=== PATIENT | female | born 1960 | race Caucasian/White ===

== ENCOUNTER 2017-11-10 01:09 | Inpatient (IN) | payer SELFPAY ==
[2017-11-10 03:06] LABS: #Basophils 0.1 thou/uL (0.0-0.2); #Eosinphils 0.1 thou/uL (0.0-0.7); #Lymphocytes 2.4 thou/uL (1.20-3.40); #Monocytes 0.5 thou/uL (0.11-0.59); #Neutrophils 5.5 thou/uL (1.40-6.50); %Eosinophils 1.7 % (0.0-10.0); %Monocytes 5.5 % (0.0-10.0); %Neutrophils 63.8 % (42.0-75.0); Hemoglobin 13.5 g/dL (12.0-16.0); Mean Corpuscular HGB CONC 33.8 g/dL (32.0-36.0); Mean Corpuscular Hemoglobin 33.9 pg (27.0-31.0); Mean Platelet Volume 6.4 fL (7.4-10.4); Platelet Count 314 thou/uL (130-400); RBC Distribution Width 12.6 % (11.5-14.5); White Blood Cell (WBC) Count 8.7 thou/uL (4.8-10.8)
[2017-11-10 03:30] LABS: Acetaminophen Less than 6.0 mcg/mL (10.0-30.0); Alcohol 175 mg/dL (Less than 10); CK (CPK) 83 U/L (29-168); Salicylate Less than 8.0 mg/dL (15.0-30.0)
[2017-11-10 03:31] LABS: ALT (SGPT) 26 U/L (8-55); AST (SGOT) 21 U/L (5-34); Albumin 4.6 g/dL (3.5-5.0); Alkaline Phosphatase 83 U/L (40-150); Anion Gap 18 mmol/L (10-20); BUN (Urea Nitrogen) 12 mg/dL (9.8-20.1); Bilirubin, Total 0.2 mg/dL (0.2-1.2); Calc. Creatinine Clearance 0 mL/min (70-130); Calcium 9.7 mg/dL (7.8-10.44); Carbon Dioxide 24 mmol/L (22-29); Chloride 107 mmol/L (98-107); Estimated GFR-MDRD Greater than 90; Globulin 3.4 g/dL (2.4-3.5); Glucose 154 mg/dL (70-105); Potassium 4.6 mmol/L (3.5-5.1); Sodium 144 mmol/L (136-145)
[2017-11-10 04:01] LABS: Bilirubin Negative (Negative); Blood, Urine Negative (Negative); Clarity CLOUDY (Clear); Glucose, Urine (Dipstick) Negative (Negative); Leukocyte Negative (Negative); Nitrite Negative (Negative); Protein, Urine (Dipstick) Negative (Neg-Trace); Specific Gravity, Urine 1.025 (1.002-1.036); Urobilinogen 0.2 mg/dL (0.2-1.0); pH, Urine 5.5 (5.0-9.0)
[2017-11-10] MEDS ORDERED: Calcium Gluc 4.6 MEQ/10 ML (100 MG/ML) ONE (04:05)
[2017-11-10 04:06] LABS: CKMB 0.8 ng/mL (0-6.6); Troponin I Less than 0.010 ng/mL (< 0.028)
[2017-11-10 04:10] LABS: Amphetamine Not Detected (NotDetected); Barbiturates Screen Not Detected (NotDetected); Benzodiazepine Screen Not Detected (NotDetected); Cocaine Metabolite Screen Not Detected (NotDetected); Medtox Control Line Valid? VALID (VALID); Medtox Reader # READER 4; Methadone Not Detected (NotDetected); Methamphetamine Not Detected (NotDetected); Opiate Screen Not Detected (NotDetected); Oxycodone Screen Not Detected (NotDetected); Phencyclidine (PCP) Not Detected (NotDetected); THC/Cannabinoid Screen Not Detected (NotDetected); Tricyclic Screen Not Detected (NotDetected)
[2017-11-10] MEDS ORDERED: Acetaminophen 325 MG TAB PO PRN (04:31)
[2017-11-10] MEDS ORDERED: Ondansetron ODT 4 MG TAB PO PRN (04:31)
[2017-11-10] MEDS ORDERED: Dextrose 5% in Water 1,000 ML IV PRN (04:39)
[2017-11-10] MEDS ORDERED: HumaLOG 300 UNITS/3 ML VIAL SC PRN (04:39)
[2017-11-10] MEDS ORDERED: Dextrose 50% Abboject 50 ML SYRINGE SLOW IVP PRN (04:39)
[2017-11-10] MEDS: Sodium Chloride 0.9% 1,000 ML IV SCH ×5 (04:45→20:04)
--- NOTE | 2017-11-10 05:19 | HP ---
CHIEF COMPLAINT: Ingestion of medications. HISTORY OF PRESENT ILLNESS: The patient is a 57-year-old female who was admitted secondary to taking an overdose of her amlodipine, Lipitor, and paroxetine. Patient apparently ingested four of each pi lls. She stated that she did not really know why she took it, but she was angry apparently at somebo dy. She did not elaborate for me. Patient since then appears to be doing okay. She is asymptomatic at the current time. She was taken to the OR and Poison Control was contacted and a recommendation was to monitor her due to long-acting nature of her amlodipine and its effect on blood pressure. PAST MEDICAL HISTORY: Patient is significant for hypertension, hyperlipidemia, and depression. PAST SURGICAL HISTORY: Patient had prior hysterectomy as well as tonsillectomy. SOCIAL HISTORY: Patient does smoke about a pack every 3 days and states that she does at times binge drink to the point of inebriation. FAMILY HISTORY: Reviewed and noncontributory. ALLERGIES: Patient is allergic to SULFA. LABORATORY AND X-RAYS DATA: CBC: White count was 8.7, H&H 13 and 40 with a platelet of 314. Sodium is 144, potassium 4.6, chloride 107, bicarbonate 24, BUN 12, creatinine 0.6 with glucose of 154. Pa tient's TSH was 1.1. Patient's UA was normal and her tox screen was negative except for a very small amount of Tylenol. PHYSICAL EXAMINATION: VITAL SIGNS: Blood pressure was 111/63, pulse 94, respirations 20. Patient satting 97% on 2 liters. T-max is 99.0. GENERAL: Patient is awake, alert, and oriented x3, no acute distress. HEENT: Pupils are round and reactive to light and accommodation. Extraocular muscles are intact. TMs are clear. No erythema in throat. NECK: No JVD, no lymphadenopathy. CARDIOVASCULAR: Regular and rhythm. LUNGS: Clear to auscultation bilaterally and positive bowel sounds. ABDOMEN: Soft, nontender, nondistended. EXTREMITIES: No clubbing, cyanosis, or edema. NEUROLOGIC: Cranial nerves II-XII are grossly intact. PSYCHIATRIC: Patient is cooperative and answering questions appropriately. ASSESSMENT AND PLAN: 1. Multi drug ingestion overdose with amlodipine, Lipitor, and paroxetine. Continue supportive care . Continue to monitor blood pressure as well as a blood sugar. 2. Hypertension, obviously continue to hold amlodipine. 3. Hyperlipidemia. Hold Lipitor. 4. Code status: Patient is FULL CODE.
[2017-11-10] MEDS ORDERED: Enoxaparin Sodium 30 MG/0.3 ML SYRINGE ONE (09:54)
[2017-11-10] MEDS ORDERED: Diabetic Tussin 200 MG/10 ML UDCUP PO PRN (10:29)
[2017-11-10] MEDS ORDERED: Sodium Chloride 0.65% Nasal 44 ML BOT EA NARE PRN (10:29)
--- NOTE | 2017-11-10 15:11 | ADD-ER ---
EMERGENCY ROOM ADDENDUM Please refer to the patient's electronic medical record for further details of her visit. In summary, the patient presents with a flat affect having stated that she intentionally overdosed on multiple of her medications, most concerningly amlodipine. She states "I don't know, maybe 4 or 5" tablets of her 10 mg amlodipine. She states it was approximately 3-4 hours prior to arrival. On exam, she demonstrates a flat affect, but is hemodynamically stable on arrival. She is in no resp iratory distress, is not septic or toxic appearing, and has no peritoneal findings on abdominal exam. She states that she vomited shortly after taking medicines. Poison Center was contacted and advise d at least 8 hours of observation. Serial blood glucose measurements were obtained at their recommen dation and with concerning trend in both her glucose and her blood pressure, she was admitted to the IMCU. She was given IV fluids and calcium and maintained her blood pressure for the remainder of her ER stay. She did not become truly hypotensive at any time. She reportedly admitted to EMS, but thi s was unintentional suicide attempt, though she was evasive when I asked her this directly. She will obviously require mental health screening when she is medically cleared. I discussed the case with Dr. Chung of the [facility] service. She is in guarded condition at the time of admiss ion.
[2017-11-10] MEDS ORDERED: Acetaminophen 325 MG TAB ONE (19:10)
[2017-11-10 20:35] LABS: Troponin I 0.028 ng/mL (< 0.028)
[2017-11-10 20:45] VITALS: BMI 29.9
[2017-11-10] MEDS: Enoxaparin Sodium 30 MG/0.3 ML SYRINGE SC SCH (21:01)
[2017-11-10 23:36] LABS: Troponin I 0.022 ng/mL (< 0.028)
[2017-11-11] MEDS: Sodium Chloride 0.9% 1,000 ML IV SCH (05:09)
[2017-11-11] MEDS: Enoxaparin Sodium 30 MG/0.3 ML SYRINGE SC SCH (08:19)
[2017-11-11] MEDS ORDERED: Enoxaparin Sodium 40 MG/0.4 ML SYRINGE SC SCH (09:00)
--- NOTE | 2017-11-11 14:01 | CON ---
DATE OF CONSULTATION: 11/11/2017 HISTORY: She is a 57-year-old female from [place] who apparently got mad and took 4 tablets of amlodipine, Lipitor and paroxetine. She then was nauseated. She is in the ICU because no beds at the [facility]. She denies any pain, shortne ss of breath, cough, wheezing, orthopnea, paroxysmal nocturnal dyspnea. PAST MEDICAL HISTORY: 1. Hypertension. 2. Hyperlipidemia. 3. Depression. PAST SURGICAL HISTORY: Hysterectomy, tonsillectomy. TOBACCO: She smokes half a pack every 3 days. ALCOHOL: Excessive, 8 beers every other day. SOCIAL/FAMILY HISTORY: [employer] Din[employer]. ALLERGIES: SULFA. FAMILY HISTORY: Otherwise unremarkable. REVIEW OF SYSTEMS: Otherwise 10 point negative. Please note there are no other members to get history for the patient, history obtained directly from the patient. She had a previous stress test done which apparently was negative. PHYSICAL EXAMINATION: GENERAL: Awake, alert, responsive, in no distress. VITAL SIGNS: Blood pressure 130/64, pulse 85, sats are 96%, respiratory rate 20. CHEST: Chest revealed no wheezing or crackles. CARDIAC: Normal S1, S2. No gallops. ABDOMEN: Soft, no masses. LABORATORY: Influenza was negative. Other labs noted. White count 8,000, H&H 13 and 40. Chemistry profile is normal. Alcohol level is 50. Toxicology screen shows in the remote past, but none recently. IMPRESSION: 1. Intentional overdose with no residual side effects. 2. Hypertension. 3. High cholesterol. 4. Depression. PLAN: She can be transferred out of the ICU to a regular medical floor. She needs counseling. I crowell ve nothing additional to offer at this time. PT and supportive care. Continue slow hydration. Please note this is a consultation note in the ICU of which 50% of my time is spent directly with elise brown.
[2017-11-11 16:16] VITALS: TEMP 97.7
== END 2017-11-11 18:04 | disposition home or self-care (01) | DRG 918 ==
LOC: ERS 01:09 → ERHOLD 03:58 → CCU 19:26
PROVIDERS: ADMIT Hospitalist; ATTEND Hospitalist
DX: T46.1X2A Poisoning by calcium-channel blockers, intentional self-harm, initial encounter (principal); E78.00 Pure hypercholesterolemia, unspecified; E78.5 Hyperlipidemia, unspecified; F17.210 Nicotine dependence, cigarettes, uncomplicated; I10 Essential (primary) hypertension; F32.9 Major depressive disorder, single episode, unspecified; T46.6X2A Poisoning by antihyperlipidemic and antiarteriosclerotic drugs, intentional self-harm, initial encounter; T43.222A Poisoning by selective serotonin reuptake inhibitors, intentional self-harm, initial encounter; T14.91XA Suicide attempt, initial encounter
CPT/HCPCS: 36415; 36416; 80053; 80306; 80307; 81003; 82550; 82553; 83605; 84443; 84484; 85025; 90471; 90732; 93005; 96361; 96365; 96366; 96372; G0009; J1650

== ENCOUNTER 2019-05-13 10:49 | Observation (INO) | payer SELFPAY ==
[2019-05-13 11:12] LABS: #Basophils 0.1 thou/uL (0.0-0.2); #Eosinphils 0.2 thou/uL (0.0-0.7); #Lymphocytes 3.1 thou/uL (1.20-3.40); #Monocytes 0.5 thou/uL (0.11-0.59); #Neutrophils 4.3 thou/uL (1.40-6.50); %Basophils 1.2 % (0.0-1.0); %Eosinophils 2.5 % (0.0-10.0); %Monocytes 5.5 % (0.0-10.0); %Neutrophils 52.9 % (42.0-75.0); Hemoglobin 13.5 g/dL (12.0-16.0); Mean Corpuscular HGB CONC 33.9 g/dL (32.0-36.0); Mean Corpuscular Hemoglobin 33.7 pg (27.0-31.0); Mean Corpuscular Volume 99.6 fL (78.0-98.0); Platelet Count 264 thou/uL (130-400); RBC Distribution Width 12.2 % (11.5-14.5); Red Blood Cell (RBC) Count 4.02 mill/uL (4.20-5.40); White Blood Cell (WBC) Count 8.2 thou/uL (4.8-10.8)
[2019-05-13 11:36] LABS: ALT (SGPT) 23 U/L (8-55); AST (SGOT) 18 U/L (5-34); Albumin 4.2 g/dL (3.5-5.0); Alkaline Phosphatase 72 U/L (40-150); Anion Gap 14 mmol/L (10-20); BUN (Urea Nitrogen) 14 mg/dL (9.8-20.1); Bilirubin, Total 0.4 mg/dL (0.2-1.2); Calc. Creatinine Clearance 0 mL/min (70-130); Calcium 9.7 mg/dL (7.8-10.44); Carbon Dioxide 22 mmol/L (22-29); Chloride 108 mmol/L (98-107); Estimated GFR-MDRD 85; Globulin 3.2 g/dL (2.4-3.5); Glucose 93 mg/dL (70-105); Protein, Total 7.4 g/dL (6.0-8.3); Sodium 140 mmol/L (136-145)
[2019-05-13] MEDS ORDERED: Aspirin Chewable 81 MG TAB ONE (11:43)
[2019-05-13] MEDS ORDERED: Nitroglycerin 2% Ointment 1 INCH/1 GM Packet ONE (11:43)
--- NOTE | 2019-05-13 12:04 | RAD ---
XR Chest 1 View Portable HISTORY: Chest pain COMPARISON: 08/14/2017 FINDINGS: The heart size is normal. The lungs are well expanded without focal areas of consolidation, pneumothorax or pleural effusions. IMPRESSION: No radiographic evidence of acute cardiopulmonary process.
[2019-05-13] MEDS ORDERED: Ondansetron PF 4 MG/2 ML Vial IVP PRN ×2 (14:10→15:02)
[2019-05-13] MEDS ORDERED: Acetaminophen 325 MG TAB PO PRN ×2 (14:10→15:02)
[2019-05-13] MEDS ORDERED: Ondansetron ODT 4 MG TAB SL PRN (14:10)
[2019-05-13 14:17] VITALS: BMI 31.8
[2019-05-13] MEDS ORDERED: hydrALAZINE 20 MG/ML VIAL SLOW IVP PRN (15:02)
[2019-05-13] MEDS ORDERED: Ondansetron ODT 4 MG TAB PO PRN (15:02)
[2019-05-13] MEDS ORDERED: cloNIDine 0.1 MG TAB PO PRN (15:02)
[2019-05-13] MEDS ORDERED: Nitroglycerin 0.4 MG TAB (25 Tab Bottle) PO PRN (15:02)
[2019-05-13 15:06] LABS: Troponin I Less than 0.010 ng/mL (< 0.028)
--- NOTE | 2019-05-13 15:52 | HP ---
PRIMARY CARE PHYSICIAN: Taylor Bautista DO CHIEF COMPLAINT: Chest pain. HISTORY OF PRESENT ILLNESS: Ms. Bean is a pleasant 58-year-old female, who has a history of hypertension and hypercholesterolemia. However, she is currently not on any medications. She says that she had gotten up this morning around 7:00 a.m. and woke up with a headache and also with some pain in the center of her chest. 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 She says that she was basically just watching him and was not doing anything strenuous, but then started having some sharp pain in the center of her chest and more to the left side. She rated it about 8/10 and says that it was sharp in character. She says it went up into her neck and made her feel kind of funny. She says that it lasted for about an hour. During this time, she also felt nauseated but did not have any vomiting. No diaphoresis and no shortness of breath. She also noted a pressure behind her left eye, but she is not really sure how this relates. She says she had an episode similar to this a couple of years ago. At that time, she had a cardiac workup and it was negative, but she says this time the pain was much more severe and for this reason, she came to the ER for evaluation. In the ER, they did an EKG, which was negative. Also, her initial troponin was less than 0.010. However, due to her history of hypertension and elevated cholesterol, she is being placed in observation. Currently, she says her pain is about 5/10 and again no shortness of breath. She also denies any PND. No orthopnea. No lower extremity edema. REVIEW OF SYSTEMS: CONSTITUTIONAL: There has been no fevers or chills. No night sweats. No weight loss. HEENT: She admits to mild headache and some pressure behind her left thigh. She denies any sore throat. No rhinorrhea. NECK: No neck pain. No adenopathy. PULMONARY: She does admit to occasional cough, but no hemoptysis. No wheezing. CARDIOVASCULAR: As the history of present illness. GASTROINTESTINAL: She has had some nausea, but no vomiting. No hematemesis. No melena. No abdominal pain. GENITOURINARY: No urinary frequency or hematuria. No hesitancy. MUSCULOSKELETAL: No muscle pains, weakness, or joint pains. NEUROLOGIC: No focal weakness or numbness. No seizures. SKIN AND INTEGUMENT: No skin changes. No rash. PSYCHIATRIC: She denies any anxiety or any depression, but does say she has been under some more degree of stress due to school starting and she is taking care of her grand children. PAST MEDICAL HISTORY: Significant for hypertension and elevated cholesterol. PAST SURGICAL HISTORY: She has had a hysterectomy and tonsillectomy. ALLERGIES: TO SULFA, WHICH SHE SAYS MAKES HER SKIN CRAWL. FAMILY HISTORY: Significant for diabetes mellitus and heart disease in her father and sister had a bypass surgery. SOCIAL HISTORY: She is , has 4 children. She smokes about a half a pack a day. She denies any alcohol use. No drug use. She would like to be a full code. CURRENT MEDICATIONS: None. PHYSICAL EXAMINATION: GENERAL: She is alert and oriented. She appears to be in no acute distress. She is well developed and well nourished. VITAL SIGNS: Her blood pressure was 155/81, heart rate 61, respiratory rate of 24, and temperature is 98. HEENT: Her pupils are equal, round, and reactive to light. Extraocular muscles are intact. Her sclerae are anicteric. Throat, there is no erythema. No exudates. NECK: No adenopathy. No bruits. LUNGS: Clear to auscultation. There are no wheezing, no rales, no rhonchi. CARDIOVASCULAR: She has a normal S1 and S2. There is no S3 or S4. No murmurs, clicks, or rubs. ABDOMEN: Soft. It is nontender and nondistended. Positive for bowel sounds. There is no rebound. No guarding. No organomegaly. EXTREMITIES: There are no joint effusions. No calf tenderness. NEUROLOGIC: Her cranial nerves are intact. Muscle strength is 5/5. Overall, it is nonfocal. SKIN AND INTEGUMENT: There are no significant skin changes. No rash. LABORATORY RESULTS: She had an EKG, which was sinus rhythm. The heart rate was in the 50s. There are no ST wave changes. She also had a chest x-ray. This is also by my reading as well as EKG and the heart size is normal. There are no effusions and no airspace disease. Her sodium was 140, potassium 4.0, chloride is 108, CO2 is 22, BUN of 14, creatinine 0.7, and glucose is 93. Troponin is less than 0.010. White blood cell count is 8.2, hemoglobin 13.5, hematocrit is 40, and platelet count is 264. ASSESSMENT AND PLAN: This is a pleasant 58-year-old female, who presents to the emergency room complaining of chest pain. EKGs, there does not have any acute changes and her troponin is negative. However, with at least 3 risk factors actually with hypertension, elevated cholesterol, and smoker. She will be placed in observation, ruled out. We will get a nuclear stress test, lipid panel and further assess her risks. Job ID: [id number]
[2019-05-13] MEDS: Famotidine 20 MG TAB PO SCH (19:42)
[2019-05-13] MEDS: Nitroglycerin 2% Ointment 1 INCH/1 GM Packet TOP SCH (22:04)
[2019-05-14 05:18] LABS: #Eosinphils 0.2 thou/uL (0.0-0.7); #Monocytes 0.4 thou/uL (0.11-0.59); #Neutrophils 3.4 thou/uL (1.40-6.50); %Basophils 0.6 % (0.0-1.0); %Eosinophils 3.2 % (0.0-10.0); %Lymphocytes 42.1 % (21.0-51.0); %Monocytes 5.7 % (0.0-10.0); %Neutrophils 48.3 % (42.0-75.0); Hemoglobin 12.3 g/dL (12.0-16.0); Mean Corpuscular HGB CONC 33.8 g/dL (32.0-36.0); Mean Corpuscular Hemoglobin 33.9 pg (27.0-31.0); Mean Platelet Volume 7.4 fL (7.4-10.4); Platelet Count 234 thou/uL (130-400); RBC Distribution Width 12.1 % (11.5-14.5); Red Blood Cell (RBC) Count 3.64 mill/uL (4.20-5.40); White Blood Cell (WBC) Count 7.1 thou/uL (4.8-10.8)
[2019-05-14 05:41] LABS: Anion Gap 11 mmol/L (10-20); BUN (Urea Nitrogen) 13 mg/dL (9.8-20.1); Calc. Creatinine Clearance 115 mL/min (70-130); Carbon Dioxide 27 mmol/L (22-29); Cardiac Risk 5.9 (Less than 4.5); Chloride 107 mmol/L (98-107); Cholesterol 275 mg/dl (< 200 Desired); Estimated GFR-MDRD 85; Glucose 99 mg/dL (70-105); HDL Cholesterol 47 mg/dL (>60 Neg Risk); LDL Cholesterol, Calculated 191 mg/dL; Potassium 4.4 mmol/L (3.5-5.1); Sodium 141 mmol/L (136-145); Triglycerides 186 mg/dL (Less than 150)
[2019-05-14] MEDS: Nitroglycerin 2% Ointment 1 INCH/1 GM Packet TOP SCH ×2 (06:19→13:04)
[2019-05-14] MEDS: Famotidine 20 MG TAB PO SCH (08:06)
[2019-05-14] MEDS ORDERED: Aspirin 325 mg Enteric Coated Tablet PO SCH (09:00)
[2019-05-14] MEDS ORDERED: Enoxaparin Sodium 40 MG/0.4 ML SYRINGE SC SCH (09:00)
--- NOTE | 2019-05-14 11:14 | NM ---
Radionucleotide stress and rest myocardial perfusion scan with CT attenuation correction and SPECT im aging Left ventricular wall motion evaluation and ejection fraction. HISTORY: Chest pain. Hypertension. FINDINGS: There is homogeneous uptake of radiotracer throughout the left ventricular myocardium. No f ocal perfusion defect or reversibility. Erik protocol. Total test time 9:30. QGS analysis of gated SPECT images shows no focal wall motion abnormalities. Ejection fraction calcul ated at 72%. IMPRESSION: Normal myocardial perfusion scan. Normal LVEF.
[2019-05-14 12:17] VITALS: BP 159/72; TEMP 98.1
--- NOTE | 2019-05-14 15:14 | DIS ---
DATE OF ADMISSION: 05/13/2019 DATE OF DISCHARGE: 05/14/2019 DISCHARGE DIAGNOSES: 1. Atypical chest pain, resolved. 2. High cholesterol and triglycerides. 3. Elevated blood pressure, 140s. Per patient, this is higher than her normal. 4. Anxiety. CONSULTING PHYSICIAN: None. HOSPITAL COURSE: Ms. Bean presented with chest pain and was referred for ACS rule out. She underwent laboratory studies including cardiac enzymes which were normal. She had an EKG done in the emergency department on initial presentation, which was normal. The chest x-ray was unremarkable. She had a stress test done, which showed an estimated ejection fraction of 72%. The test was deemed to have a normal myocardial perfusion scan. The patient remained without any recurring chest pain. She was therefore cleared for discharge home. Given her high cholesterol, she has been started on rosuvastatin. The patient expressed her blood pressures normally in the 120s, low 130s range and felt that it was her stress that was causing it to be elevated. Therefore, she wanted to follow up with her primary care physician for further management of her blood pressure. She states she is generally very active, but her states she tends to drink coffee and worked in the heat with her son without eating or drinking much throughout the day. The patient does report having issues with pain in the past, which she felt may be related to stress. She also has a known history of gastroesophageal reflux. At present, she has no complaints. Has been eating and drinking without any difficulties. Has been mobilizing without any chest pain, palpitations, shortness of breath, or lightheadedness. Has been remained afebrile. No cough or hemoptysis. All other review of systems are negative. The patient was seen and examined on the day of discharge. CONDITION: Stable. ACTIVITY: As tolerated. DIET: Heart healthy, low fat. DISCHARGE MEDICATIONS: 1. The patient was given a prescription for famotidine 20 mg p.o. twice daily. 2. Given a prescription for rosuvastatin 20 mg p.o. at bedtime. FOLLOWUP: The patient advised to follow up with her primary care physician within 1 week for continued management of her cholesterol and high blood pressure. Advised to check her blood pressure at home twice a day and maintain a log which she can review with her primary care physician. DISPOSITION: The patient medically cleared for discharge home on 05/14/2019. The patient discussed with Dr. Wong who agrees with plan of care as described above. Job ID: [id number]
[2019-05-14] MEDS ORDERED: Rosuvastatin 20 MG TAB PO SCH (21:00)
== END 2019-05-14 15:55 | disposition home or self-care (01) ==
LOC: ERS 10:49 → 2SW 12:16
PROVIDERS: ADMIT Internal Medicine; ATTEND Internal Medicine
DX: R07.89 Other chest pain (principal); E78.00 Pure hypercholesterolemia, unspecified; E78.1 Pure hyperglyceridemia; I10 Essential (primary) hypertension; F41.9 Anxiety disorder, unspecified; F32.9 Major depressive disorder, single episode, unspecified; F17.210 Nicotine dependence, cigarettes, uncomplicated; Z88.2 Allergy status to sulfonamides
CPT/HCPCS: 36415; 71045; 78452; 80048; 80053; 80061; 84484; 85025; 93005; 93017; 94760; A9500; G0378

== ENCOUNTER 2025-07-20 08:01 | Inpatient (IN) | payer SELFPAY ==
[2025-07-20] MEDS ORDERED: Aspirin Chewable 81 MG TAB ONE (08:17)
[2025-07-20] MEDS ORDERED: Nitroglycerin 0.4 MG TAB 1 EACH ONE (08:17)
[2025-07-20 08:20] LABS: #Basophils 0.07 10x3/uL (0.0-0.2); #Eosinophils 0.17 10x3/uL (0.0-0.7); #Monocytes 0.64 10x3/uL (0.11-0.59); #Neutrophils 7.26 10x3/uL (1.40-6.50); %Basophils 0.6 % (0.0-1.0); %Eosinophils 1.5 % (0.0-10.0); %Lymphocytes 28.8 % (21.0-51.0); %Monocytes 5.6 % (0.0-10.0); %Neutrophils 63.2 % (42.0-75.0); Hematocrit 43.8 % (36.0-47.0); Hemoglobin 13.7 g/dL (12.0-16.0); Mean Corpuscular Hemoglobin 31.6 pg (27.0-31.0); Mean Corpuscular Volume 100.9 fL (78.0-98.0); Platelet Count 256 10x3/uL (130-400); Red Blood Cell (RBC) Count 4.34 mill/uL (4.20-5.40); White Blood Cell (WBC) Count 11.49 10x3/uL (4.8-10.8)
[2025-07-20 08:41] LABS: ALT (SGPT) 19 U/L (Less than 34); AST (SGOT) 34 U/L (11-34); Albumin 4.0 g/dL (3.1-4.5); Alkaline Phosphatase 73 U/L (40-110); Anion Gap 13 mmol/L (10-20); BUN (Urea Nitrogen) 12 mg/dL (9.8-20.1); Bilirubin, Total 0.2 mg/dL (0.3-1.2); Calc. Creatinine Clearance 0 mL/min (70-130); Calcium 9.4 mg/dL (7.8-10.44); Carbon Dioxide 24 mmol/L (23-31); Chloride 108 mmol/L (98-107); Globulin 3.4 g/dL (2.4-3.5); Glucose 112 mg/dL (80-115); Lipase 31 U/L (8-78); Potassium 4.4 mmol/L (3.5-5.1); Sodium 141 mmol/L (136-145)
[2025-07-20] MEDS ORDERED: Enoxaparin 30 MG (0.3 mL) SYRINGE ONE (09:59)
[2025-07-20 10:14] LABS: INR-International Normal Ratio 0.9; PTT 26.7 sec (22.9-36.1); Prothrombin Time 12.3 sec (12.0-14.7)
[2025-07-20] MEDS ORDERED: Nitroglycerin 0.4 MG TAB (25 Tab Bottle) SL PRN (10:19)
[2025-07-20] MEDS ORDERED: Communication Order-Pharmacy FS PRN (10:26)
[2025-07-20 10:55] LABS: Cardiac Risk 6.3 (Less than 4.5); Cholesterol 316.0 mg/dl (< 200 Desired); HDL Cholesterol 50.0 mg/dL (>60 Neg Risk); LDL Cholesterol, Calculated 228.0 mg/dL; Triglycerides 189.0 mg/dL (Less than 150)
[2025-07-20] MEDS ORDERED: Communication Order-Pharmacy FS SCH ×2 (12:45→15:45)
[2025-07-20 14:37] VITALS: BMI 29.0
[2025-07-20] MEDS ORDERED: Enoxaparin 80 MG (0.8 mL) SYRINGE SC SCH (21:00)
[2025-07-21] MEDS: Aspirin 81 mg Enteric Coated Tablet PO SCH (05:32)
[2025-07-21] MEDS: Acetaminophen 325 MG TAB PO PRN (08:05)
[2025-07-21] MEDS ORDERED: Heparin 10,000 UNITS/ 10 ML VIAL ONE (08:23)
[2025-07-21] MEDS ORDERED: Adenosine 6 mg (2 mL) VIAL ONE (08:23)
[2025-07-21] MEDS ORDERED: PHENYLEPHRINE-NS 100 MCG/ML 10 ML SYRINGE ONE (08:24)
[2025-07-21] MEDS ORDERED: EPINEPHrine 1 MG/10 ML Abboject SYRINGE ONE (08:24)
[2025-07-21] MEDS ORDERED: Lidocaine 1% (PF) 30 ML VIAL ONE (08:24)
[2025-07-21] MEDS ORDERED: Nitroglycerin 50 MG/250 ML BOT 250 ML ONE (08:24)
[2025-07-21] MEDS ORDERED: Nitroglycerin 2% Ointment 1 INCH/1 GM Packet ONE (09:52)
[2025-07-21] MEDS ORDERED: Iopamidol 370 76% 100 ML VIAL ONE (10:59)
[2025-07-21] MEDS ORDERED: Communication Order-Pharmacy FS SCH (15:45)
[2025-07-22 06:04] LABS: #Basophils 0.09 10x3/uL (0.0-0.2); #Eosinophils 0.13 10x3/uL (0.0-0.7); #Monocytes 0.69 10x3/uL (0.11-0.59); #Neutrophils 5.94 10x3/uL (1.40-6.50); %Basophils 0.9 % (0.0-1.0); %Eosinophils 1.2 % (0.0-10.0); %Lymphocytes 34.2 % (21.0-51.0); %Monocytes 6.6 % (0.0-10.0); %Neutrophils 56.8 % (42.0-75.0); Hematocrit 46.8 % (36.0-47.0); Hemoglobin 13.5 g/dL (12.0-16.0); Mean Corpuscular Hemoglobin 31.8 pg (27.0-31.0); Mean Corpuscular Volume 110.1 fL (78.0-98.0); Platelet Count 258 10x3/uL (130-400); Red Blood Cell (RBC) Count 4.25 mill/uL (4.20-5.40); White Blood Cell (WBC) Count 10.46 10x3/uL (4.8-10.8)
[2025-07-22] MEDS ORDERED: EPINEPHrine 1 MG/10 ML Abboject SYRINGE ONE (06:39)
[2025-07-22] MEDS ORDERED: PHENYLEPHRINE-NS 100 MCG/ML 10 ML SYRINGE ONE ×2 (06:40→10:54)
[2025-07-22 07:04] LABS: Anion Gap 10 mmol/L (10-20); BUN (Urea Nitrogen) 12 mg/dL (9.8-20.1); Calc. Creatinine Clearance 116 mL/min (70-130); Calcium 8.8 mg/dL (7.8-10.44); Carbon Dioxide 28 mmol/L (23-31); Chloride 108 mmol/L (98-107); Glucose 115 mg/dL (80-115); Potassium 4.1 mmol/L (3.5-5.1); Sodium 142 mmol/L (136-145)
[2025-07-22] MEDS ORDERED: Heparin 10,000 UNITS/1 ML VIAL 30,000 UNITS in Sodium Chloride 0.9% 1,000 ML FS SCH (09:45)
[2025-07-22] MEDS ORDERED: CEFAZOLIN 2 GM VIAL ONE (09:45)
[2025-07-22] MEDS ORDERED: PROPOFOL 20 ML ONE ×2 (10:20→13:20)
[2025-07-22] MEDS ORDERED: Calcium Chloride 1 GM/10 ML Abboject SYRINGE ONE ×2 (10:35→14:05)
[2025-07-22] MEDS ORDERED: Etomidate 40 MG (20 mL) VIAL ONE (10:35)
[2025-07-22] MEDS ORDERED: Thrombin 5000 UNITS/5 ML VIAL ONE (10:35)
[2025-07-22] MEDS ORDERED: Heparin 30,000 units/30 ml VIAL ONE (10:35)
[2025-07-22] MEDS ORDERED: Heparin 5,000 UNITS/ML VIAL ONE (10:35)
[2025-07-22] MEDS ORDERED: Cardioplegic Soln 1,000 ML BAG ONE (10:35)
[2025-07-22] MEDS ORDERED: Rocuronium Bromide 10 MG/ML (10ML VIAL) ONE (10:54)
[2025-07-22] MEDS ORDERED: Lidocaine 1% PF 5 ML VIAL ONE (10:54)
[2025-07-22] MEDS ORDERED: Ondansetron PF 4 MG/2 ML Vial ONE (13:35)
[2025-07-22] MEDS ORDERED: NOREPINEPHRINE 8 MG/250 ML-D5W 250 ML IVPB PRN (14:10)
[2025-07-22] MEDS ORDERED: Post-Op Insulin Drip Protocol IVPB PRN (14:10)
[2025-07-22] MEDS ORDERED: Phenylephrine 40 MG/NS 250 ML 250 ML IVPB PRN (14:10)
[2025-07-22] MEDS ORDERED: Mag-Al 1200 mg/1200 mg/30 ML UDCUP PO PRN (14:10)
[2025-07-22] MEDS ORDERED: Bisacodyl 10 MG SUPP PR PRN (14:10)
[2025-07-22] MEDS ORDERED: hydrALAZINE 20 MG/ML VIAL SLOW IVP PRN (14:10)
[2025-07-22] MEDS ORDERED: niCARdipine 25 MG in Sodium Chloride 0.9% 250 ML 250 ML IVPB PRN (14:10)
[2025-07-22] MEDS ORDERED: Guaifenesin DM 100-10/5 ML UDCUP PO PRN (14:10)
[2025-07-22] MEDS ORDERED: Acetaminophen 325 MG TAB PO PRN (14:10)
[2025-07-22] MEDS ORDERED: Glucagon 1 MG/ML KIT SC PRN (14:30)
[2025-07-22] MEDS ORDERED: Insulin Reg, Human 100 UNITS in Sodium Chloride 0.9% 100 ML IVPB SCH (14:30)
[2025-07-22] MEDS ORDERED: Dextrose 50% Abboject 50 ML SYRINGE SLOW IVP PRN (14:30)
[2025-07-22 14:46] LABS: Actual Bicarbonate (HCO3a) 21.4 mEq/L (22-28); Base Excess (BEa) -3.9 mEq/L (-2.0 to +3.0); CO2 Tension 39.9 mmHg (35.0-45.0); Calcium, Ionized (arterial) 1.15 mmol/L (1.12-1.30); Hematocrit-ABG 37 % (36.0-47.0); Hemoglobin (Hb) 12.6 g/dL (12.0-16.0); O2 Tension (PaO2), arterial 233.2 mmHg (> 80.0); Potassium - ABG Lab 3.90 mmol/L (3.70-5.30); pH, Arterial 7.347 (7.35-7.45)
[2025-07-22 14:53] LABS: ALV-art Gradient 144.725 mmHg (0-20); Puncture Site Arterial Line
[2025-07-22] MEDS: Albumin 5% 12.5 GM (250 mL) BOT IVPB PRN ×2 (15:10→20:45)
[2025-07-22] MEDS: Norepinephrine 8 MG/0.9% NS 250 ML ONE (15:10)
[2025-07-22 15:14] LABS: #Basophils 0.06 10x3/uL (0.0-0.2); #Eosinophils 0.11 10x3/uL (0.0-0.7); #Monocytes 0.70 10x3/uL (0.11-0.59); #Neutrophils 11.06 10x3/uL (1.40-6.50); %Basophils 0.4 % (0.0-1.0); %Eosinophils 0.7 % (0.0-10.0); %Lymphocytes 25.5 % (21.0-51.0); %Monocytes 4.3 % (0.0-10.0); %Neutrophils 68.7 % (42.0-75.0); Hematocrit 38.0 % (36.0-47.0); Hemoglobin 11.8 g/dL (12.0-16.0); Mean Corpuscular Hemoglobin 31.7 pg (27.0-31.0); Mean Corpuscular Volume 102.2 fL (78.0-98.0); Platelet Count 182 10x3/uL (130-400); Red Blood Cell (RBC) Count 3.72 mill/uL (4.20-5.40); White Blood Cell (WBC) Count 16.10 10x3/uL (4.8-10.8)
[2025-07-22] MEDS: NS 0.9% w/ 20 MEQ KCL 1,000 ML IV SCH (15:15)
[2025-07-22] MEDS: Magnesium 2 GM/50 ML(in water) 2 GM in Premix 1 BAG IVPB SCH (15:19)
[2025-07-22 15:27] LABS: Anion Gap 9 mmol/L (10-20); BUN (Urea Nitrogen) 10 mg/dL (9.8-20.1); Calc. Creatinine Clearance 126 mL/min (70-130); Calcium 8.0 mg/dL (7.8-10.44); Carbon Dioxide 23 mmol/L (23-31); Chloride 117 mmol/L (98-107); Glucose 144 mg/dL (80-115); Potassium 4.0 mmol/L (3.5-5.1); Sodium 145 mmol/L (136-145)
[2025-07-22 16:15] LABS: INR-International Normal Ratio 1.5; PTT 27.0 sec (22.9-36.1); Prothrombin Time 17.9 sec (12.0-14.7)
[2025-07-22] MEDS: Potassium Chloride 20 MEQ (100 mL) BAG IVPB PRN (19:02)
[2025-07-22 19:18] LABS: Actual Bicarbonate (HCO3a) 19.7 mEq/L (22-28); Base Excess (BEa) -5.7 mEq/L (-2.0 to +3.0); CO2 Tension 38.4 mmHg (35.0-45.0); Calcium, Ionized (arterial) 1.11 mmol/L (1.12-1.30); Hematocrit-ABG 36 % (36.0-47.0); Hemoglobin (Hb) 12.4 g/dL (12.0-16.0); O2 Tension (PaO2), arterial 99.4 mmHg (> 80.0); Potassium - ABG Lab 4.52 mmol/L (3.70-5.30); pH, Arterial 7.328 (7.35-7.45)
[2025-07-22] MEDS: Senokot S 8.6-50 MG TAB PO SCH (20:41)
[2025-07-22] MEDS: Famotidine/PF 20 mg/2ml Vial SLOW IVP SCH (20:41)
[2025-07-22] MEDS: Ondansetron PF 4 MG/2 ML Vial IVP PRN (22:56)
[2025-07-23] MEDS: INSULIN REGULAR IN 0.9 % NACL 100 UNITS in Premix 1 BAG IVPB SCH (00:24)
[2025-07-23 06:13] LABS: #Basophils Less than 0.03 10x3/uL (0.0-0.2); #Eosinophils Less than 0.03 10x3/uL (0.0-0.7); #Monocytes 0.95 10x3/uL (0.11-0.59); #Neutrophils 13.07 10x3/uL (1.40-6.50); %Basophils 0.1 % (0.0-1.0); %Eosinophils 0.0 % (0.0-10.0); %Lymphocytes 6.7 % (21.0-51.0); %Monocytes 6.3 % (0.0-10.0); %Neutrophils 86.6 % (42.0-75.0); Hematocrit 31.3 % (36.0-47.0); Hemoglobin 9.7 g/dL (12.0-16.0); Mean Corpuscular Hemoglobin 32.1 pg (27.0-31.0); Mean Corpuscular Volume 103.6 fL (78.0-98.0); Platelet Count 170 10x3/uL (130-400); Red Blood Cell (RBC) Count 3.02 mill/uL (4.20-5.40); White Blood Cell (WBC) Count 15.10 10x3/uL (4.8-10.8)
[2025-07-23 07:10] LABS: ALT (SGPT) 15 U/L (Less than 34); AST (SGOT) 76 U/L (11-34); Albumin 4.0 g/dL (3.1-4.5); Alkaline Phosphatase 36 U/L (40-110); Anion Gap 12 mmol/L (10-20); BUN (Urea Nitrogen) 7 mg/dL (9.8-20.1); Bilirubin, Direct 0.2 mg/dL (0.1-0.3); Bilirubin, Total 0.4 mg/dL (0.3-1.2); Calc. Creatinine Clearance 113 mL/min (70-130); Calcium 8.0 mg/dL (7.8-10.44); Carbon Dioxide 23 mmol/L (23-31); Chloride 114 mmol/L (98-107); Glucose 122 mg/dL (80-115); Magnesium 2.5 mg/dL (1.6-2.6); Potassium 4.4 mmol/L (3.5-5.1); Sodium 145 mmol/L (136-145)
[2025-07-23 07:11] LABS: Potassium 5.1 mmol/L (3.5-5.1)
[2025-07-23] MEDS: Magnesium 2 GM/50 ML(in water) 2 GM in Premix 1 BAG IVPB SCH (09:33)
[2025-07-23] MEDS: Aspirin Chewable 81 MG TAB PO SCH (09:34)
[2025-07-23] MEDS: Heparin 5,000 UNITS/ML VIAL SC SCH (09:35)
[2025-07-23 09:38] LABS: Hemoglobin 11.4 g/dL (12.0-16.0)
[2025-07-23 09:52] LABS: Hematocrit 36.1 % (36.0-47.0)
[2025-07-23 13:32] LABS: Puncture Site ALINE
[2025-07-23 13:33] LABS: ALV-art Gradient 137.800 mmHg (0-20)
[2025-07-23] MEDS ORDERED: Insulin Glargine 30 UNITS/0.3 ML VIAL SC PRN (14:24)
[2025-07-23] MEDS: Carvedilol 3.125 MG TAB PO SCH (17:31)
[2025-07-23] MEDS: Famotidine 20 MG TAB PO SCH (20:18)
[2025-07-23] MEDS: Transdermal Patch Removal TOP SCH (20:29)
[2025-07-24 05:03] LABS: #Basophils 0.03 10x3/uL (0.0-0.2); #Eosinophils 0.10 10x3/uL (0.0-0.7); #Monocytes 1.32 10x3/uL (0.11-0.59); #Neutrophils 15.22 10x3/uL (1.40-6.50); %Basophils 0.2 % (0.0-1.0); %Eosinophils 0.5 % (0.0-10.0); %Lymphocytes 10.9 % (21.0-51.0); %Monocytes 7.0 % (0.0-10.0); %Neutrophils 80.8 % (42.0-75.0); Hematocrit 30.0 % (36.0-47.0); Hemoglobin 9.4 g/dL (12.0-16.0); Mean Corpuscular Hemoglobin 32.0 pg (27.0-31.0); Mean Corpuscular Volume 102.0 fL (78.0-98.0); Platelet Count 179 10x3/uL (130-400); Red Blood Cell (RBC) Count 2.94 mill/uL (4.20-5.40); White Blood Cell (WBC) Count 18.85 10x3/uL (4.8-10.8)
[2025-07-24 05:24] LABS: Anion Gap 11 mmol/L (10-20); BUN (Urea Nitrogen) 8 mg/dL (9.8-20.1); Calc. Creatinine Clearance 131 mL/min (70-130); Calcium 8.6 mg/dL (7.8-10.44); Carbon Dioxide 25 mmol/L (23-31); Chloride 107 mmol/L (98-107); Glucose 143 mg/dL (80-115); Magnesium 2.3 mg/dL (1.6-2.6); Potassium 4.8 mmol/L (3.5-5.1); Sodium 138 mmol/L (136-145)
[2025-07-24] MEDS: Furosemide 40 MG (4 mL) VIAL SLOW IVP SCH (11:08)
[2025-07-24] MEDS: Mupirocin 1 GM TUBE NASAL DECOLONIZATION NASAL SCH (20:49)
[2025-07-25 04:14] LABS: #Basophils 0.04 10x3/uL (0.0-0.2); #Eosinophils Less than 0.03 10x3/uL (0.0-0.7); #Monocytes 0.81 10x3/uL (0.11-0.59); #Neutrophils 11.74 10x3/uL (1.40-6.50); %Basophils 0.3 % (0.0-1.0); %Eosinophils 0.1 % (0.0-10.0); %Lymphocytes 17.7 % (21.0-51.0); %Monocytes 5.2 % (0.0-10.0); %Neutrophils 76.1 % (42.0-75.0); Hematocrit 30.2 % (36.0-47.0); Hemoglobin 9.2 g/dL (12.0-16.0); Mean Corpuscular Hemoglobin 31.6 pg (27.0-31.0); Mean Corpuscular Volume 103.8 fL (78.0-98.0); Platelet Count 215 10x3/uL (130-400); Red Blood Cell (RBC) Count 2.91 mill/uL (4.20-5.40); White Blood Cell (WBC) Count 15.44 10x3/uL (4.8-10.8)
[2025-07-25 04:27] LABS: Anion Gap 12 mmol/L (10-20); BUN (Urea Nitrogen) 9 mg/dL (9.8-20.1); Calc. Creatinine Clearance 124 mL/min (70-130); Calcium 9.0 mg/dL (7.8-10.44); Carbon Dioxide 31 mmol/L (23-31); Chloride 105 mmol/L (98-107); Glucose 165 mg/dL (80-115); Magnesium 2.3 mg/dL (1.6-2.6); Potassium 3.7 mmol/L (3.5-5.1); Sodium 144 mmol/L (136-145)
[2025-07-25] MEDS: PHOS-NAK 1 PKT PACK PO SCH (09:12)
[2025-07-26 04:29] LABS: #Basophils 0.04 10x3/uL (0.0-0.2); #Eosinophils 0.08 10x3/uL (0.0-0.7); #Monocytes 0.88 10x3/uL (0.11-0.59); #Neutrophils 7.28 10x3/uL (1.40-6.50); %Basophils 0.3 % (0.0-1.0); %Eosinophils 0.7 % (0.0-10.0); %Lymphocytes 28.9 % (21.0-51.0); %Monocytes 7.5 % (0.0-10.0); %Neutrophils 62.1 % (42.0-75.0); Hematocrit 29.9 % (36.0-47.0); Hemoglobin 9.4 g/dL (12.0-16.0); Mean Corpuscular Hemoglobin 31.9 pg (27.0-31.0); Mean Corpuscular Volume 101.4 fL (78.0-98.0); Platelet Count 246 10x3/uL (130-400); Red Blood Cell (RBC) Count 2.95 mill/uL (4.20-5.40); White Blood Cell (WBC) Count 11.73 10x3/uL (4.8-10.8)
[2025-07-26 04:58] LABS: Anion Gap 13 mmol/L (10-20); BUN (Urea Nitrogen) 10 mg/dL (9.8-20.1); Calc. Creatinine Clearance 118 mL/min (70-130); Calcium 8.8 mg/dL (7.8-10.44); Carbon Dioxide 28 mmol/L (23-31); Chloride 106 mmol/L (98-107); Glucose 134 mg/dL (80-115); Magnesium 2.0 mg/dL (1.6-2.6); Potassium 3.0 mmol/L (3.5-5.1); Sodium 144 mmol/L (136-145)
[2025-07-26] MEDS: Magnesium 2 GM/50 ML(in water) 2 GM in Premix 1 BAG IVPB SCH (09:39)
[2025-07-26 10:48] VITALS: TEMP 98.2
[2025-07-26 11:30] VITALS: BP 99/51
== END 2025-07-26 15:29 | disposition home or self-care (01) | DRG 234 ==
LOC: ERS 08:01 → ERHOLD 09:49 → OBS 13:57 → OBSVTOIN 07-21 11:02 → CCU 07-22 14:35 → PCU 07-24 00:35
PROVIDERS: ADMIT Student in an Organized Health Care Education/Training Program; ATTEND Internal Medicine
PROC: 02100Z9 Bypass Coronary Artery, One Artery from Left Internal Mammary, Open Approach (ICD-10-PCS; principal; 2025-07-21)
PROC: 021009W Bypass Coronary Artery, One Artery from Aorta with Autologous Venous Tissue, Open Approach (ICD-10-PCS; 2025-07-21)
PROC: 06BQ4ZZ Excision of Left Saphenous Vein, Percutaneous Endoscopic Approach (ICD-10-PCS; 2025-07-21)
PROC: 02L70CK Occlusion of Left Atrial Appendage with Extraluminal Device, Open Approach (ICD-10-PCS; 2025-07-21)
PROC: 5A1221Z Performance of Cardiac Output, Continuous (ICD-10-PCS; 2025-07-21)
PROC: 4A023N7 Measurement of Cardiac Sampling and Pressure, Left Heart, Percutaneous Approach (ICD-10-PCS; 2025-07-21)
PROC: B2111ZZ Fluoroscopy of Multiple Coronary Arteries using Low Osmolar Contrast (ICD-10-PCS; 2025-07-21)
PROC: 3E033XZ Introduction of Vasopressor into Peripheral Vein, Percutaneous Approach (ICD-10-PCS; 2025-07-21)
PROC: 03HY32Z Insertion of Monitoring Device into Upper Artery, Percutaneous Approach (ICD-10-PCS; 2025-07-22)
PROC: 4A133B1 Monitoring of Arterial Pressure, Peripheral, Percutaneous Approach (ICD-10-PCS; 2025-07-22)
PROC: 4A133J1 Monitoring of Arterial Pulse, Peripheral, Percutaneous Approach (ICD-10-PCS; 2025-07-22)
PROC: 02H633Z Insertion of Infusion Device into Right Atrium, Percutaneous Approach (ICD-10-PCS; 2025-07-22)
PROC: 30233J1 Transfusion of Nonautologous Serum Albumin into Peripheral Vein, Percutaneous Approach (ICD-10-PCS; 2025-07-22)
PROC: 4A133R1 Monitoring of Arterial Saturation, Peripheral, Percutaneous Approach (ICD-10-PCS; 2025-07-22)
DX: I21.4 Non-ST elevation (NSTEMI) myocardial infarction (principal); I25.10 Atherosclerotic heart disease of native coronary artery without angina pectoris; Z88.2 Allergy status to sulfonamides; J44.9 Chronic obstructive pulmonary disease, unspecified; Z71.6 Tobacco abuse counseling; E11.9 Type 2 diabetes mellitus without complications; F17.200 Nicotine dependence, unspecified, uncomplicated; Z91.199 Patient's noncompliance with other medical treatment and regimen due to unspecified reason; Z79.82 Long term (current) use of aspirin; Z79.899 Other long term (current) drug therapy; E78.2 Mixed hyperlipidemia; F32.A Depression, unspecified; Z90.710 Acquired absence of both cervix and uterus; Z98.890 Other specified postprocedural states; Z79.4 Long term (current) use of insulin; Z88.8 Allergy status to other drugs, medicaments and biological substances; I11.9 Hypertensive heart disease without heart failure; E87.6 Hypokalemia
CPT/HCPCS: 36415; 36416; 71045; 80048; 80053; 80061; 80076; 82805; 83036; 83690; 83735; 84100; 84443; 84484; 85025; 85379; 85610; 85730; 86850; 86900; 86901; 93005; 93010; 93306; 93458; 93798; 94002; 94150; 94640; 94760; 97139; 99152; 99153; A4311; A4648; C1751; C1769; C1887; C1889; C1894; G0378; J0153; J0165; J0169; J0461; J0665; J1100; J1308; J1642; J1644; J1650; J1815; J1940; J2003; J2250; J2405; J2704; J2720; J3010; J3373; J3475; J3480; P9045; Q9967; S0017